=== PATIENT | male | born 1990 | race Caucasian/White ===

== ENCOUNTER 2018-11-24 01:07 | Emergency (ER) | payer OTHER, SELFPAY ==
--- NOTE | 2018-11-24 02:13 | ER ---
Nurse's Notes [facility] Name: Enrique Harris Age: 28 yrs Sex: Male : 1990 Arrival Date: 11/24/2018 Time: 01:12 Bed 16 Private MD: Diagnosis: Streptococcal pharyngitis Presentation: 11/24 01:21 Presenting complaint: Patient states: i have sore throat x 3 days. denies fever. mg2 Transition of care: patient was not received from another setting of care. Onset of symptoms was November 21, 2018. Risk Assessment: Do you want to hurt yourself or someone else? Patient reports no desire to harm self or others. Initial Sepsis Screen: Does the patient meet any 2 criteria? No. Patient's initial sepsis screen is negative. Does the patient have a suspected source of infection? No. Patient's initial sepsis screen is negative. Care prior to arrival: None. 01:21 Method Of Arrival: Ambulatory mg2 01:21 Acuity: FRANKLIN 4 mg2 Triage Assessment: 01:39 General: Appears in no apparent distress. comfortable, Behavior is calm, cooperative. mg2 Pain: Complains of pain in throat Pain does not radiate. Pain currently is 2 out of 10 on a pain scale. Quality of pain is described as aching, Pain began gradually. EENT: Reports pain in throat. Neuro: Level of Consciousness is awake, alert, obeys commands, Oriented to person, place, time, situation. Cardiovascular: Capillary refill < 3 seconds Patient's skin is warm and dry. Respiratory: Airway is patent Respiratory effort is even, unlabored, Respiratory pattern is regular, symmetrical. GI: No signs and/or symptoms were reported involving the gastrointestinal system. : No signs and/or symptoms were reported regarding the genitourinary system. Derm: Skin is intact, is healthy with good turgor, Skin is pink, warm \T\ dry. normal. Musculoskeletal: Circulation, motion, and sensation intact. Capillary refill < 3 seconds. Historical: - Allergies: : No Known Allergies; mg2 - Home Meds: : None [Active]; mg2 - PMHx: : None; mg2 - PSHx: : None; mg2 - Immunization history:: Flu vaccine status is unknown. - Social history:: Smoking status: Patient uses tobacco products, smokes one pack cigarettes per day. Patient uses alcohol, occasionally. - Ebola Screening: : No symptoms or risks identified at this time. Screenin:40 Abuse screen: Denies threats or abuse. Denies injuries from another. Nutritional mg2 screening: No deficits noted. Tuberculosis screening: No symptoms or risk factors identified. Fall Risk None identified. Assessment: 01:30 General: Appears in no apparent distress. comfortable, Behavior is calm, cooperative, rr5 agitated. Pain: Complains of pain in throat. 01:30 Neuro: Level of Consciousness is awake, alert, obeys commands, Oriented to person, rr5 place, time, situation, Appropriate for age. Cardiovascular: Capillary refill < 3 seconds Patient's skin is warm and dry. Respiratory: Airway is patent Respiratory effort is even, unlabored, Respiratory pattern is regular, symmetrical. GI: No signs and/or symptoms were reported involving the gastrointestinal system. : No signs and/or symptoms were reported regarding the genitourinary system. EENT: Throat with gag reflex present, Reports pain in throat. Derm: Skin temperature is warm. Musculoskeletal: No signs and/or symptoms reported regarding the musculoskeletal system. 01:41 Respiratory: Breath sounds are clear. mg2 02:36 Reassessment: Patient appears in no apparent distress at this time. No changes from rr5 previously documented assessment. Patient is alert, oriented x 3, equal unlabored respirations, skin warm/dry/pink. 02:58 Reassessment: Patient appears in no apparent distress at this time. Patient is alert, rr5 oriented x 3, equal unlabored respirations, skin warm/dry/pink. discharge instruction given and explained without complaints made. Vital Signs: 01:22 BP 132 / 80; Pulse 62; Resp 18; Temp 98.5; Pulse Ox 98% on R/A; Weight 94.8 kg; Height mg2 6 ft. 0 in. (182.88 cm); 02:55 BP 121 / 80; Pulse 65; Resp 17; Pulse Ox 99% ; rr5 01:22 Body Mass Index 28.35 (94.80 kg, 182.88 cm) mg2 ED Course: 01:12 Patient arrived in ED. am2 01:15 [facility] kb 01:15 Lauri Vazquez MD is Attending Physician. kb 01:22 Triage completed. mg2 01:40 Arm band placed on. mg2 01:41 Patient has correct armband on for positive identification. mg2 01:41 No provider procedures requiring assistance completed. Patient did not have IV access mg2 during this emergency room visit. 02:17 Shai Monzon, RN is Primary Nurse. rr5 Administered Medications: 02:32 Drug: Augmentin 875 mg Route: PO; rr5 02:57 Follow up: Response: No adverse reaction; Medication administered at discharge. bb Outcome: 02:13 Discharge ordered by MD. kb 02:58 Discharged to home ambulatory. bb 02:58 Condition: stable 02:58 Discharge instructions given to patient, Instructed on discharge instructions, follow up and referral plans. medication usage, Demonstrated understanding of instructions, follow-up care, medications, Prescriptions given X 1. 02:58 Patient left the ED. bb Signatures: Alie Chamorro, RISK OFFICER-C RISK OFFICER-Ckb Leigha Maki, RN RN bb Mindi Velazquez Michele RN RN mg2 Shai Monzon, RN RN rr5
--- NOTE | 2018-11-24 02:14 | EDPHYS ---
Physician Documentation [facility] Name: Enrique Harris Age: 28 yrs Sex: Male : 1990 Arrival Date: 11/24/2018 Time: 01:12 Bed 16 Private MD: ED Physician Lauri Vazquez HPI: 11/24 01:22 This 28 yrs old Male presents to ER via Unassigned with complaints of Sore kb Throat. 01:22 This 28 yrs old Male presents to ER via Unassigned with complaints of Sore kb Throat. 01:22 The patient presents with sore throat. The patient describes throat pain as constant. kb Onset: The symptoms/episode began/occurred 3 day(s) ago. Severity of symptoms: At their worst the symptoms were moderate, in the emergency department the symptoms are unchanged. Modifying factors: The symptoms are alleviated by nothing, the symptoms are aggravated by swallowing, Patient's oral intake status: good Denies contact with similarly ill indivduals. Associated signs and symptoms: Pertinent positives: Sore throat Pertinent negatives chest pain, chills, cough, diarrhea, dysphagia, earache, fever, flu-like symptoms, headache, nausea, rhinorrhea, shortness of breath, vomiting. The patient has not experienced similar symptoms in the past. The patient has not recently seen a physician. Historical: - Allergies: 01:23 No Known Allergies; mg2 - Home Meds: 01:23 None [Active]; mg2 - PMHx: :23 None; mg2 - PSHx: 01:23 None; mg2 - Immunization history:: Flu vaccine status is unknown. - Social history:: Smoking status: Patient uses tobacco products, smokes one pack cigarettes per day. Patient uses alcohol, occasionally. - Ebola Screening: : No symptoms or risks identified at this time. ROS: 01:22 Constitutional: Negative for fever, chills, and weight loss, Neck: Negative for injury, kb pain, and swelling, Cardiovascular: Negative for chest pain, palpitations, and edema, Respiratory: Negative for shortness of breath, cough, wheezing, and pleuritic chest pain, Abdomen/GI: Negative for abdominal pain, nausea, vomiting, diarrhea, and constipation, MS/Extremity: Negative for injury and deformity, Skin: Negative for injury, rash, and discoloration, Neuro: Negative for headache, weakness, numbness, tingling, and seizure. 01:22 ENT: Positive for sore throat. Exam: : Constitutional: This is a well developed, well nourished patient who is awake, alert, kb and in no acute distress. Head/Face: Normocephalic, atraumatic. Chest/axilla: Normal chest wall appearance and motion. Nontender with no deformity. No lesions are appreciated. Cardiovascular: Regular rate and rhythm with a normal S1 and S2. No gallops, murmurs, or rubs. Normal PMI, no JVD. No pulse deficits. Respiratory: Lungs have equal breath sounds bilaterally, clear to auscultation and percussion. No rales, rhonchi or wheezes noted. No increased work of breathing, no retractions or nasal flaring. Abdomen/GI: Soft, non-tender, with normal bowel sounds. No distension or tympany. No guarding or rebound. No evidence of tenderness throughout. Skin: Warm, dry with normal turgor. Normal color with no rashes, no lesions, and no evidence of cellulitis. MS/ Extremity: Pulses equal, no cyanosis. Neurovascular intact. Full, normal range of motion. Neuro: Awake and alert, GCS 15, oriented to person, place, time, and situation. Cranial nerves II-XII grossly intact. Motor strength 5/5 in all extremities. Sensory grossly intact. Cerebellar exam normal. Normal gait. :22 ENT: External ear(s): are unremarkable, Ear canal(s): are normal, TM's: are normal, Nose: is normal, Mouth: is normal, Posterior pharynx: Airway: normal, Tonsils: bilaterally enlarged, with erythema, Uvula: normal, midline, swelling, that is mild, erythema, that is moderate, exudate, is not appreciated. Vital Signs: 01:22 BP 132 / 80; Pulse 62; Resp 18; Temp 98.5; Pulse Ox 98% on R/A; Weight 94.8 kg; Height mg2 6 ft. 0 in. (182.88 cm); 02:55 BP 121 / 80; Pulse 65; Resp 17; Pulse Ox 99% ; rr5 01:22 Body Mass Index 28.35 (94.80 kg, 182.88 cm) mg2 MDM: 01:16 Patient medically screened. kb 01:22 Data reviewed: vital signs, nurses notes. Data interpreted: Pulse oximetry: on room air kb is 98 %. Interpretation: normal. 02:11 Counseling: I had a detailed discussion with the patient and/or guardian regarding: the kb historical points, exam findings, and any diagnostic results supporting the discharge/admit diagnosis, lab results, the need for outpatient follow up, a family practitioner, to return to the emergency department if symptoms worsen or persist or if there are any questions or concerns that arise at home. 11/24 01:20 Order name: Strep; Complete Time: 02:14 kb Administered Medications: 02:32 Drug: Augmentin 875 mg Route: PO; rr5 02:57 Follow up: Response: No adverse reaction; Medication administered at discharge. bb Disposition: 09:01 Co-signature as Attending Physician, Lauri Vazquez MD I agree with the assessment and kd plan of care. Disposition: 11/24/18 02:13 Discharged to Home. Impression: Streptococcal pharyngitis. - Condition is Stable. - Discharge Instructions: Strep Throat, [id number]. - Prescriptions for Augmentin 875- 125 mg Oral Tablet - take 1 tablet by ORAL route every 12 hours for 10 days; 20 tablet. - Medication Reconciliation Form, Thank You Letter, Antibiotic Education, Prescription Opioid Use form. - Follow up: Emergency Department; When: As needed; Reason: Worsening of condition. Follow up: Private Physician; When: 2 - 3 days; Reason: Recheck today's complaints, Continuance of care, Re-evaluation by your physician. Signatures: Dispatcher [employer] EDME Alie Chamorro, PASTE THINNER-C PASTE THINNER-Lauri Bryant MD MD cha Ballard, Brenda RN RN Basil Dai, RN RN Shai Zhao RN RN rr5 Corrections: (The following items were deleted from the chart) 02:58 02:13 11/24/2018 02:13 Discharged to Home. Impression: Streptococcal pharyngitis. bb Condition is Stable. Forms are Medication Reconciliation Form, Thank You Letter, Antibiotic Education, Prescription Opioid Use. Follow up: Emergency Department; When: As needed; Reason: Worsening of condition. Follow up: Private Physician; When: 2 - 3 days; Reason: Recheck today's complaints, Continuance of care, Re-evaluation by your physician. kb
[2018-11-24] MEDS ORDERED: AMOX/K CLAV 875 MG TAB ONE (02:40)
== END 2018-11-24 02:58 | disposition home or self-care (01) ==
LOC: ER 01:07
DX: J02.0 Streptococcal pharyngitis (principal); F17.210 Nicotine dependence, cigarettes, uncomplicated
CPT/HCPCS: 87081; 99283

== ENCOUNTER 2020-02-21 18:38 | Emergency (ER) | payer SELFPAY ==
[2020-02-21 19:53] LABS: Absolute Lymphocytes (CBC) 3.6 K/uL (0.7-4.9); Basophils % 0.8 % (0-1.3); Hematocrit 45.9 % (39.6-49.0); Lymphocytes % 42.1 % (15.3-44.8); MPV 9.1 fL (7.6-11.3); RBC Red Blood Cell Count 5.09 M/uL (4.33-5.43)
[2020-02-21 20:01] LABS: ALT/SGPT 45 U/L (12-78); AST/SGOT 32 U/L (15-37); Alkaline Phosphatase 80 U/L (45-117); BUN Blood Urea Nitrogen 13 mg/dL (7-18); Bicarbonate 26 mmol/L (21-32); Bilirubin Direct < 0.1 mg/dL (0-0.2); Bilirubin Total 0.2 mg/dL (0.2-1.0); Glucose Level 88 mg/dL (74-106); Lipase 55 U/L (73-393); Potassium 4.2 mmol/L (3.5-5.1); Protein, Total 7.8 g/dL (6.4-8.2); Sodium Level 142 mmol/L (136-145)
[2020-02-21] MEDS ORDERED: LIDOCAINE VISCOUS 2% SOLN 15 ML UDC ONE (20:21)
[2020-02-21] MEDS ORDERED: NA CHLORIDE 0.9% 1,000 ML ONE (20:21)
[2020-02-21] MEDS ORDERED: MAGNE/ALUM HYDROXD 30 ML UCUP ONE (20:21)
[2020-02-21] MEDS ORDERED: ONDANSETRON 4 MG/2 ML VIAL ONE (20:21)
[2020-02-21] MEDS ORDERED: FAMOTIDINE 20 MG/2 ML VIAL IV ONE (20:21)
--- NOTE | 2020-02-21 20:21 | ER ---
Nurse's Notes [facility] Name: Enrique Harris Age: 29 yrs Sex: Male : 1990 Arrival Date: 02/21/2020 Time: 19:10 Bed 14 Private MD: Diagnosis: Gastritis, unspecified, without bleeding Presentation: 02/20 19:23 Chief complaint: Patient states: Fever at 101 F this morning. Reports RUQ pain, ca1 diarrhea and dark tarry stools x 2 weeks. Denies N/V. Denies cough. Denies SOB. Tested NEGATIVE for COVID 3 weeks ago. Coronavirus screen: Proceed with normal triage. Patient denies a cough. Patient denies shortness of breath or difficulty breathing. Patient reports a measured and/or subjective temperature greater than 100.4F. Patient denies travel on a cruise ship or to a country the [facility] currently lists as an affected area. Patient denies contact with known and/or suspected case of COVID-19. Ebola Screen: Patient negative for fever greater than or equal to 101.5 degrees Fahrenheit, and additional compatible Ebola Virus Disease symptoms Patient denies exposure to infectious person. Patient denies travel to an Ebola-affected area in the 21 days before illness onset. No symptoms or risks identified at this time. Initial Sepsis Screen: Does the patient meet any 2 criteria? No. Patient's initial sepsis screen is negative. Does the patient have a suspected source of infection? No. Patient's initial sepsis screen is negative. Risk Assessment: Do you want to hurt yourself or someone else? Patient reports no desire to harm self or others. Onset of symptoms was February 21, 2020. 19:23 Method Of Arrival: Ambulatory ca1 19:23 Acuity: FRANKLIN 3 ca1 Historical: - Allergies: 19:26 No Known Allergies; ca1 - Home Meds: 19:26 None [Active]; ca1 - PMHx: 19:26 None; ca1 - PSHx: 19:26 None; ca1 - Immunization history:: Adult Immunizations up to date. - Social history:: Smoking status: Patient reports the use of cigarette tobacco products, smokes one-half pack cigarettes per day. Screenin:29 Abuse screen: Denies threats or abuse. Denies injuries from another. Nutritional ls4 screening: No deficits noted. Tuberculosis screening: No symptoms or risk factors identified. Fall Risk None identified. Assessment: 19:19 General: Appears in no apparent distress. comfortable, Behavior is calm, cooperative. ls4 19:19 Pain: Complains of pain in epigastric area Pain currently is 0 out of 10 on a pain ls4 scale. at worst was 3 out of 10 on a pain scale. Neuro: Level of Consciousness is awake, alert, obeys commands. Cardiovascular: Denies chest pain, diaphoresis, fatigue, lightheadedness, nausea, palpitations, shortness of breath, syncope, vomiting, Capillary refill < 3 seconds Clubbing of nail beds is absent Patient's skin is warm and dry. Rhythm is regular. Respiratory: Airway is patent Respiratory effort is even, unlabored, Respiratory pattern is regular, Breath sounds are clear bilaterally. GI: Abdomen is non-distended, Bowel sounds present X 4 quads. Abd is soft and non tender X 4 quads. Abd is non tender X 4 quads. : No deficits noted. No signs and/or symptoms were reported regarding the genitourinary system. Derm: No deficits noted. No signs and/or symptoms reported regarding the dermatologic system. Musculoskeletal: No deficits noted. No signs and/or symptoms reported regarding the musculoskeletal system. 20:25 Reassessment: Patient appears in no apparent distress at this time. Patient and/or ls4 family updated on plan of care and expected duration. Pain level reassessed. Patient is alert, oriented x 3, equal unlabored respirations, skin warm/dry/pink. Pt STATES THAT HE WAS SCANNED ON WAY INTO WORK AND THE SCANNER READ 101. HE STATES THAT HE THINKS THE SCANNER WAS HOT BECAUSE OF THE WEATHER AND HE IS NOT SICK. PT STATES HE HAS NOT BEEN SICK AT ALL AND NEEDS CLEARANCE TO RETURN TO WORK. PT STATES THAT HE DOES HAVE STOMACH ISSUES BUT THAT HAS BEEN GOING ON FOR A LONG TIME. Vital Signs: 19:23 BP 127 / 82; Pulse 85; Resp 17 S; Temp 98.6(TE); Pulse Ox 98% on R/A; Weight 97.52 kg ca1 (R); Height 5 ft. 11 in. (180.34 cm) (R); Pain 0/10; 19:23 Body Mass Index 29.99 (97.52 kg, 180.34 cm) ca1 ED Course: 19:10 Patient arrived in ED. ds1 19:17 Brennan Frey MD is Attending Physician. tw4 19:20 Cinthya Logan, JUANCARLOS is Primary Nurse. ls4 19:26 Triage completed. ca1 19:26 Arm band placed on right wrist. ca1 19:34 Initial lab(s) drawn, by me, sent to lab. Inserted saline lock: 18 gauge in right rv antecubital area, using aseptic technique. Blood collected. 20:22 Miguel Pereira MD is Referral Physician. tw4 20:22 Melo Barraza MD is Referral Physician. tw4 20:29 Patient has correct armband on for positive identification. Bed in low position. Call ls4 light in reach. Side rails up X 1. Pulse ox on. NIBP on. Verbal reassurance given. 20:29 No provider procedures requiring assistance completed. ls4 20:41 Primary Nurse role handed off by Cinthya Logan, RN ls4 Administered Medications: 20:10 Drug: Pepcid 20 mg Route: IVP; Site: right antecubital; ls4 20:10 Drug: NS 0.9% 1000 ml Route: IV; Rate: 1 bolus; Site: right antecubital; ls4 20:10 Drug: Zofran (Ondansetron) 4 mg Route: IVP; Site: right antecubital; ls4 20:10 Drug: GI Cocktail without - (Maalox Suspension 30 ml, Lidocaine Liquid 2 % 15 ls4 ml) Route: PO; Outcome: 20:20 Discharge ordered by . tw4 20:31 Patient left the ED. ls4 21:26 Patient left the ED. sg Signatures: Darnell Goncalves RN RN sg Cami Mchugh ds1 Brennan Frey MD MD tw4 Odell Newsome, JUANCARLOS RN rv Cinthya Logan, JUANCARLSO RN ls4 Jenni Thomason RN RN ca1 Corrections: (The following items were deleted from the chart) 21:00 20:59 Odell Newsome RN is Primary Nurse. rv rv
--- NOTE | 2020-02-21 20:21 | EDPHYS ---
Physician Documentation [facility] Name: Enrique Harris Age: 29 yrs Sex: Male : 1990 Arrival Date: 02/21/2020 Time: 19:10 Bed 14 Private MD: ED Physician Brennan Frey HPI: 02/20 20:18 This 29 yrs old Male presents to ER via Ambulatory with complaints of tw4 Possible Ulcers. 20:18 The patient presents with abdominal pain in the epigastric area. Onset: The tw4 symptoms/episode began/occurred 1 week(s) ago. The symptoms do not radiate. Associated signs and symptoms: none. The symptoms are described as dull. Modifying factors: The symptoms are alleviated by nothing, the symptoms are aggravated by nothing. Severity of pain: At its worst the pain was moderate in the emergency department the pain is unchanged. The patient has not experienced similar symptoms in the past. Historical: - Allergies: 19:26 No Known Allergies; ca1 - Home Meds: 19:26 None [Active]; ca1 - PMHx: 19:26 None; ca1 - PSHx: 19:26 None; ca1 - Immunization history:: Adult Immunizations up to date. - Social history:: Smoking status: Patient reports the use of cigarette tobacco products, smokes one-half pack cigarettes per day. ROS: 20:18 Constitutional: Negative for fever, chills, and weight loss, Eyes: Negative for injury, tw4 pain, redness, and discharge, Cardiovascular: Negative for chest pain, palpitations, and edema, Respiratory: Negative for shortness of breath, cough, wheezing, and pleuritic chest pain, Back: Negative for injury and pain, MS/Extremity: Negative for injury and deformity, Skin: Negative for injury, rash, and discoloration, Neuro: Negative for headache, weakness, numbness, tingling, and seizure. 20:18 Abdomen/GI: Positive for abdominal pain, Negative for nausea and vomiting, nausea, vomiting, and diarrhea, nausea, abdominal cramps, abdominal distension, black/tarry stool, rectal pain, rectal bleeding. Exam: 20:18 Constitutional: This is a well developed, well nourished patient who is awake, alert, tw4 and in no acute distress. Head/Face: Normocephalic, atraumatic. Chest/axilla: Normal chest wall appearance and motion. Nontender with no deformity. No lesions are appreciated. Cardiovascular: Regular rate and rhythm with a normal S1 and S2. No gallops, murmurs, or rubs. Normal PMI, no JVD. No pulse deficits. Respiratory: Lungs have equal breath sounds bilaterally, clear to auscultation and percussion. No rales, rhonchi or wheezes noted. No increased work of breathing, no retractions or nasal flaring. Back: No spinal tenderness. No costovertebral tenderness. Full range of motion. Skin: Warm, dry with normal turgor. Normal color with no rashes, no lesions, and no evidence of cellulitis. MS/ Extremity: Pulses equal, no cyanosis. Neurovascular intact. Full, normal range of motion. Neuro: Awake and alert, GCS 15, oriented to person, place, time, and situation. Cranial nerves II-XII grossly intact. Motor strength 5/5 in all extremities. Sensory grossly intact. Cerebellar exam normal. Normal gait. 20:18 Abdomen/GI: Inspection: abdomen appears normal, Bowel sounds: normal, Palpation: mild abdominal tenderness, in the epigastric area. Vital Signs: 19:23 BP 127 / 82; Pulse 85; Resp 17 S; Temp 98.6(TE); Pulse Ox 98% on R/A; Weight 97.52 kg ca1 (R); Height 5 ft. 11 in. (180.34 cm) (R); Pain 0/10; 19:23 Body Mass Index 29.99 (97.52 kg, 180.34 cm) ca1 MDM: 19:17 Patient medically screened. tw4 20:19 Differential diagnosis: coronary artery disease, cholecystitis, gastritis, tw4 gastroesophageal reflux disease, GI Bleed, pancreatitis, Peptic Ulcer Disease, Perf. Duodenal Ulcer, Perf. Gastric Ulcer. Data reviewed: vital signs, nurses notes. Data interpreted: Pulse oximetry: Interpretation: normal. Counseling: I had a detailed discussion with the patient and/or guardian regarding: the historical points, exam findings, and any diagnostic results supporting the discharge/admit diagnosis, lab results. Medication response: GI Cocktail relieved the patient's pain. The symptoms have resolved. Response to treatment: and as a result, I will continue to observe the patient. Response to treatment: and as a result, I will. Admission orders: after a detailed discussion of the patient's condition and case, the admit orders are written by me. Special discussion: Based on the patient's Hx, exam, and Dx evaluation, there is no indication for emergent surgery or inpatient Tx. It is understood by the patient/guardian that if the Sx's persist or worsen they need to return immediately for re-evaluation. I discussed with the patient/guardian in detail that at this point there is no indication for admission to the hospital. It is understood, however, that if the symptoms persist or worsen the patient needs to return immediately for re-evaluation. 02/20 19:24 Order name: Basic Metabolic Panel; Complete Time: 20:04 02/20 20:05 Interpretation: Normal except: CL 109; GFR 81. 02/20 19:24 Order name: CBC with Diff; Complete Time: 20:04 02/20 20:05 Interpretation: Within normal limits. 02/20 19:24 Order name: Hepatic Function; Complete Time: 20:04 02/20 20:05 Interpretation: Normal except: GLOB 3.8. 02/20 19:24 Order name: Lipase; Complete Time: 20:04 02/20 20:05 Interpretation: Within normal limits: LIP 55. 02/20 19:24 Order name: IV Saline Lock; Complete Time: 20:10 02/20 19:24 Order name: Labs collected and sent; Complete Time: 20:10 tw4 Administered Medications: 20:10 Drug: Pepcid 20 mg Route: IVP; Site: right antecubital; ls4 20:10 Drug: NS 0.9% 1000 ml Route: IV; Rate: 1 bolus; Site: right antecubital; ls4 20:10 Drug: Zofran (Ondansetron) 4 mg Route: IVP; Site: right antecubital; ls4 20:10 Drug: GI Cocktail without - (Maalox Suspension 30 ml, Lidocaine Liquid 2 % 15 ls4 ml) Route: PO; Disposition: 02/21/20 20:20 Discharged to Home. Impression: Gastritis, unspecified, without bleeding. - Condition is Stable. - Discharge Instructions: Gastritis, Adult. - Prescriptions for Pepcid 20 mg Oral Tablet - take 1 tablet by ORAL route every 12 hours for 10 days; 20 tablet. Zofran 4 mg Oral Tablet - take 1 tablet by ORAL route every 12 hours As needed; 6 tablet. - Medication Reconciliation Form, Thank You Letter, Antibiotic Education, Prescription Opioid Use form. - Follow up: Private Physician; When: Upon discharge from the Emergency Department; Reason: Recheck today's complaints, Continuance of care, Re-evaluation by your physician. Follow up: Miguel Pereira MD; When: Upon discharge from the Emergency Department; Reason: Recheck today's complaints, Continuance of care, Re-evaluation by your physician. Follow up: Melo Barraza MD; When: Upon discharge from the Emergency Department; Reason: Recheck today's complaints, Continuance of care, Re-evaluation by your physician. - Problem is new. - Symptoms have improved. Signatures: Dispatcher [employer] EDDarnell Saenz RN RN Brennan Anand MD MD tw4 Cinthya Logan RN RN ls4 Jenni Thomason RN RN ca1 Corrections: (The following items were deleted from the chart) 20:22 20:20 02/21/2020 20:20 Discharged to Home. Impression: Gastritis, unspecified, without tw4 bleeding. Condition is Stable. Forms are Medication Reconciliation Form, Thank You Letter, Antibiotic Education, Prescription Opioid Use. Follow up: Private Physician; When: Upon discharge from the Emergency Department; Reason: Recheck today's complaints, Continuance of care, Re-evaluation by your physician. Problem is new. Symptoms have improved. tw4 20:31 20:22 02/21/2020 20:20 Discharged to Home. Impression: Gastritis, unspecified, without ls4 bleeding. Condition is Stable. Discharge Instructions: Gastritis, Adult. Prescriptions for Pepcid 20 mg Oral Tablet - take 1 tablet by ORAL route every 12 hours for 10 days; 20 tablet, Zofran 4 mg Oral Tablet - take 1 tablet by ORAL route every 12 hours As needed; 6 tablet. and Forms are Medication Reconciliation Form, Thank You Letter, Antibiotic Education, Prescription Opioid Use. Follow up: Private Physician; When: Upon discharge from the Emergency Department; Reason: Recheck today's complaints, Continuance of care, Re-evaluation by your physician. Follow up: Miguel Pereira; When: Upon discharge from the Emergency Department; Reason: Recheck today's complaints, Continuance of care, Re-evaluation by your physician. Follow up: Melo Barraza; When: Upon discharge from the Emergency Department; Reason: Recheck today's complaints, Continuance of care, Re-evaluation by your physician. Problem is new. Symptoms have improved. tw4 21:26 20:31 02/21/2020 20:20 Discharged to Home. Impression: Gastritis, unspecified, without sg bleeding. Condition is Stable. Discharge Instructions: Gastritis, Adult. Prescriptions for Pepcid 20 mg Oral Tablet - take 1 tablet by ORAL route every 12 hours for 10 days; 20 tablet, Zofran 4 mg Oral Tablet - take 1 tablet by ORAL route every 12 hours As needed; 6 tablet. and Forms are Medication Reconciliation Form, Thank You Letter, Antibiotic Education, Prescription Opioid Use. Follow up: Private Physician; When: Upon discharge from the Emergency Department; Reason: Recheck today's complaints, Continuance of care, Re-evaluation by your physician. Follow up: Miguel Pereira; When: Upon discharge from the Emergency Department; Reason: Recheck today's complaints, Continuance of care, Re-evaluation by your physician. Follow up: Melo Barraza; When: Upon discharge from the Emergency Department; Reason: Recheck today's complaints, Continuance of care, Re-evaluation by your physician. Problem is new. Symptoms have improved. ls4
[2020-02-21 20:50] VITALS: BP 127/82; TEMP 98.6; O2SAT 98
== END 2020-02-21 21:26 | disposition home or self-care (01) ==
LOC: ER 18:38
DX: K29.70 Gastritis, unspecified, without bleeding (principal); F17.210 Nicotine dependence, cigarettes, uncomplicated
CPT/HCPCS: 36415; 80048; 80076; 83690; 85025; 96374; 96375; 99284; J2405; J7030